=== PATIENT | female | born 1990 | race Caucasian/White ===

== ENCOUNTER 2018-04-14 21:19 | Emergency (ER) | payer BC, OTHER ==
[2018-04-14 21:26] VITALS: RESP 18
[2018-04-14 22:21] LABS: Appearance,Urine Clear (Clear); Bilirubin,Urine Negative (Negative); Blood,Urine Negative (Negative); Color,Urine Yellow; Glucose,Urine (UA) Negative (Negative); Ketones,Urine 3+ (Negative); Leukocyte Esterase,Urine Negative (Negative); Nitrite,Urine Negative (Negative); Protein,Urine Trace (Negative); Specific Gravity,Urine 1.024 (1.001-1.035)
[2018-04-14] MEDS ORDERED: ACETAMINOPHEN TAB 500 MG TAB PO STA (22:45)
[2018-04-14 23:23] LABS: Basophils % (A) 0 %; Eosinophils # (A) 0.1 k/uL (0-0.7); Eosinophils % (A) 1 %; HGB 13.7 gm/dL (11.4-16.0); Lymphocytes # (A) 1.7 k/uL (1.0-4.8); Lymphocytes % (A) 18 %; MCH 29.1 pg (25.0-35.0); MCHC 31.9 g/dL (31.0-37.0); MCV 91.1 fL (80.0-100.0); Mean Platelet Volume 6.5; Monocytes # (A) 0.6 k/uL (0-1.0); Monocytes % (A) 6 %; Neutrophils # (A) 6.6 k/uL (1.3-7.7); Neutrophils % (A) 71 %; Platelet Count 281 k/uL (150-450); RBC 4.73 m/uL (3.80-5.40); RDW 13.9 % (11.5-15.5); WBC 9.3 k/uL (3.8-10.6)
[2018-04-14 23:33] LABS: ALT 38 U/L (9-52); AST 28 U/L (14-36); Albumin 3.9 g/dL (3.5-5.0); Alkaline Phosphatase 59 U/L (38-126); Amylase 100 U/L (30-110); Anion Gap 11 mmol/L; Blood Urea Nitrogen 8 mg/dL (7-17); Calcium 8.9 mg/dL (8.4-10.2); Carbon Dioxide 21 mmol/L (22-30); Chloride 105 mmol/L (98-107); Glucose 78 mg/dL (74-99); Lipase 68 U/L (23-300); Potassium 3.8 mmol/L (3.5-5.1); Sodium 137 mmol/L (137-145); Total Bilirubin 0.4 mg/dL (0.2-1.3)
--- NOTE | 2018-04-15 00:07 | US ---
EXAMINATION TYPE: US OB >= 14 wk fetus DATE OF EXAM: 04/14/2018 COMPARISON: None CLINICAL HISTORY: PainPelvic discomfort, no bleeding TECHNIQUE: Transabdominal (TA) GESTATIONAL AGE / DATING Physician Established: (17 weeks/3 days) EDC: 09/19/2018 Dates by Current Scan: (17 weeks/5 days) EDC: 09/17/2018 Beta HCG (if available): Not available at this time SURVEY IUP: Single PLACENTA: Posterior PREVIA: No Previa ALYX: 13.6 cm Normal CERVICAL LENGTH (transabdominal: norm > 3.0cm): 3.3 cm BIOMETRY PRESENTATION: Vertex LIE: Longitudinal BPD: 4.0 cm 18 weeks / 2 days HC: 14.6 cm 17 weeks / 6 days AC: 12.0 cm 17 weeks / 5 days FL: 2.4 cm 17 weeks / 1 days ESTIMATED WEIGHT IN GRAMS: 198.0 grams ESTIMATED WEIGHT IN LBS/OZ: 0 lbs. 7 oz. WEIGHT PERCENTAGE BASED ON ESTABLISHED DATES: 49.7% HC/AC: 1.2 Normal FL/AC: 19.8 HEART RATE: 158 bpm RHYTHM: Normal Single live IUP measuring 17 weeks 5 days IMPRESSION: No complicating process seen. Cephalic presentation.
[2018-04-15 00:31] VITALS: BP 108/60; PULSE 54; TEMP 99
[2018-04-15 00:33] LABS: HCG,Quantitative Serum 37971.6 mIU/mL
--- NOTE | 2018-04-15 01:13 | ED ---
General Adult HPI - General Source: patient, RN notes reviewed Mode of arrival: wheelchair Limitations: no limitations <Elijah Alejo P - Last Filed: 04/15/18 01:18> <Candace Culver P - Last Filed: 04/16/18 05:04> - General Chief complaint: Abdominal Pain Stated complaint: abdominal pain/headache Time Seen by Provider: 04/14/18 22:20 - History of Present Illness Initial comments: 27 year old female presents to the emergency department for a chief complaint of vomiting and abdominal pain x one day. Patient is about 17 weeks . Patient states she has some left lower quadrant pain. She states she has been having normal bowel movements. Patient denies any pain with urination. Patient denies noticing any blood in the urine or stool. Patient states she has also vomited a few times today that has been able to keep some food down. Patient states she has a history of placenta previa with this and does not want a pelvic exam or a transvaginal ultrasound as read by her doctor.Patient has no other complaints at this time including fevers or chills, shortness of breath, chest pain, headache, or visual changes. (Elijah Alejo) - Related Data Home Medications Medication Instructions Recorded Confirmed No Known Home Medications 04/14/18 04/14/18 Allergies Allergy/AdvReac Type Severity Reaction Status Date / Time venom-honey bee Allergy Swelling Verified 04/14/18 22:48 [bee venom (honey bee)] artificial grape flavor Allergy Swelling Uncoded 04/14/18 21:26 Review of Systems ROS Other: All systems not noted in ROS Statement are negative. <Elijah Alejo - Last Filed: 04/15/18 01:18> ROS Other: All systems not noted in ROS Statement are negative. <Candace Culver P - Last Filed: 04/16/18 05:04> ROS Statement: Those systems with pertinent positive or pertinent negative responses have been documented in the HPI. Past Medical History Past Medical History: Asthma History of Any Multi-Drug Resistant Organisms: None Reported Past Surgical History: No Surgical Hx Reported Past Psychological History: Anxiety, Bipolar, Depression Smoking Status: Current every day smoker Past Alcohol Use History: Occasional Past Drug Use History: None Reported <Elijah Alejo - Last Filed: 04/15/18 01:18> General Exam Limitations: no limitations General appearance: alert, in no apparent distress Head exam: Present: atraumatic, normocephalic, normal inspection Eye exam: Present: normal appearance. Absent: scleral icterus, conjunctival injection ENT exam: Present: normal exam, mucous membranes moist Neck exam: Present: normal inspection, full ROM. Absent: tenderness, meningismus, lymphadenopathy Respiratory exam: Present: normal lung sounds bilaterally. Absent: respiratory distress, wheezes, rales, rhonchi, stridor Cardiovascular Exam: Present: regular rate, normal rhythm, normal heart sounds. Absent: systolic murmur, diastolic murmur, rubs, gallop, clicks GI/Abdominal exam: Present: soft, tenderness (mild LLQ tenderness, no tenderness elsewhere in the lower abdomen. ), normal bowel sounds. Absent: distended, guarding, rebound, rigid Back exam: Absent: CVA tenderness (R), CVA tenderness (L) Neurological exam: Present: alert, oriented X3, CN II-XII intact Psychiatric exam: Present: normal affect (Patient pleasant and cooperative. Does not appear in distress. Sitting in bed, non-toxic.), normal mood <Elijah Alejo P - Last Filed: 04/15/18 01:18> Vital Signs 04/14/18 04/15/18 21:24 00:30 Temperature 98.4 F 99.0 F Pulse Rate 115 H 54 L Respiratory 18 18 Rate Blood Pressure 117/75 108/60 O2 Sat by Pulse 100 100 Oximetry Medical Decision Making - Lab Data Result diagrams: 04/14/18 23:13 04/14/18 23:13 <Elijah Alejo P - Last Filed: 04/15/18 01:18> - Lab Data Result diagrams: 04/14/18 23:13 04/14/18 23:13 <Candace Culver P - Last Filed: 04/16/18 05:04> - Medical Decision Making 27 her old female presents to the emergency determine for chief complaint of left lower quadrant pain as well as vomiting times one day. Patient has been having normal bowel movements. Patient was initially tachycardic in the emergency department after pain was controlled with Tylenol vitals stabilized. On exam patient has left lower quadrant tenderness. No tenderness elsewhere in the abdomen. Patient is [id number]. CBC and CMP unremarkable. Amylase and lipase within normal limits. HCG Quant correlates to a second trimester . Urine shows no evidence of infection. Pedal ultrasound transabdominal shows no placenta previa. There is a single live IUP without, dictating process measuring 17 weeks and 5 days. Patient states she is feeling much better after the Tylenol and wants to go home. Patient is likely experiencing of round ligament pain. Patient will follow up with [facility] in the next 1-2 days. Discussed with patient returning to the emergency Department if she has any worsening symptoms which she agrees to do. (Elijah Alejo) I was available for consultation in the emergency department. The history and physical exam were done by the midlevel provider. I was consulted for this patient's care. I reviewed the case with the midlevel provider and based on their presentation of the patient, I agree with the assessment, medical decision making and plan of care as documented. (Candace Culver) - Lab Data Lab Results 04/14/18 04/14/18 04/14/18 Range/Units 22:07 22:07 23:13 WBC 9.3 (3.8-10.6) k/uL RBC 4.73 (3.80-5.40) m/uL Hgb 13.7 (11.4-16.0) gm/dL Hct 43.0 (34.0-46.0) % MCV 91.1 (80.0-100.0) fL MCH 29.1 (25.0-35.0) pg MCHC 31.9 (31.0-37.0) g/dL RDW 13.9 (11.5-15.5) % Plt Count 281 (150-450) k/uL Neutrophils % 71 % Lymphocytes % 18 % Monocytes % 6 % Eosinophils % 1 % Basophils % 0 % Neutrophils # 6.6 (1.3-7.7) k/uL Lymphocytes # 1.7 (1.0-4.8) k/uL Monocytes # 0.6 (0-1.0) k/uL Eosinophils # 0.1 (0-0.7) k/uL Basophils # 0.0 (0-0.2) k/uL Sodium (137-145) mmol/L Potassium (3.5-5.1) mmol/L Chloride (98-107) mmol/L Carbon Dioxide (22-30) mmol/L Anion Gap mmol/L BUN (7-17) mg/dL Creatinine (0.52-1.04) mg/dL Est GFR (CKD-EPI)AfAm (>60 ml/min/1.73 sqM) Est GFR (CKD-EPI)NonAf (>60 ml/min/1.73 sqM) Glucose (74-99) mg/dL Calcium (8.4-10.2) mg/dL Total Bilirubin (0.2-1.3) mg/dL AST (14-36) U/L ALT (9-52) U/L Alkaline Phosphatase (38-126) U/L Total Protein (6.3-8.2) g/dL Albumin (3.5-5.0) g/dL Amylase (30-110) U/L Lipase (23-300) U/L HCG, Quant mIU/mL Urine Color Yellow Urine Appearance Clear (Clear) Urine pH 6.0 (5.0-8.0) Ur Specific [place] 1.024 (1.001-1.035) Urine Protein Trace H (Negative) Urine Glucose (UA) Negative (Negative) Urine Ketones 3+ H (Negative) Urine Blood Negative (Negative) Urine Nitrite Negative (Negative) Urine Bilirubin Negative (Negative) Urine Urobilinogen 2.0 (<2.0) mg/dL Ur Leukocyte Esterase Negative (Negative) Urine HCG, Qual Detected (Not Detectd) 04/14/18 Range/Units 23:13 WBC (3.8-10.6) k/uL RBC (3.80-5.40) m/uL Hgb (11.4-16.0) gm/dL Hct (34.0-46.0) % MCV (80.0-100.0) fL MCH (25.0-35.0) pg MCHC (31.0-37.0) g/dL RDW (11.5-15.5) % Plt Count (150-450) k/uL Neutrophils % % Lymphocytes % % Monocytes % % Eosinophils % % Basophils % % Neutrophils # (1.3-7.7) k/uL Lymphocytes # (1.0-4.8) k/uL Monocytes # (0-1.0) k/uL Eosinophils # (0-0.7) k/uL Basophils # (0-0.2) k/uL Sodium 137 (137-145) mmol/L Potassium 3.8 (3.5-5.1) mmol/L Chloride 105 (98-107) mmol/L Carbon Dioxide 21 L (22-30) mmol/L Anion Gap 11 mmol/L BUN 8 (7-17) mg/dL Creatinine 0.60 (0.52-1.04) mg/dL Est GFR (CKD-EPI)AfAm >90 (>60 ml/min/1.73 sqM) Est GFR (CKD-EPI)NonAf >90 (>60 ml/min/1.73 sqM) Glucose 78 (74-99) mg/dL Calcium 8.9 (8.4-10.2) mg/dL Total Bilirubin 0.4 (0.2-1.3) mg/dL AST 28 (14-36) U/L ALT 38 (9-52) U/L Alkaline Phosphatase 59 (38-126) U/L Total Protein 7.0 (6.3-8.2) g/dL Albumin 3.9 (3.5-5.0) g/dL Amylase 100 (30-110) U/L Lipase 68 (23-300) U/L HCG, Quant 38050.6 mIU/mL Urine Color Urine Appearance (Clear) Urine pH (5.0-8.0) Ur Specific [place] (1.001-1.035) Urine Protein (Negative) Urine Glucose (UA) (Negative) Urine Ketones (Negative) Urine Blood (Negative) Urine Nitrite (Negative) Urine Bilirubin (Negative) Urine Urobilinogen (<2.0) mg/dL Ur Leukocyte Esterase (Negative) Urine HCG, Qual (Not Detectd) Disposition Is patient prescribed a controlled substance at d/c from ED?: No Time of Disposition: 01:11 <Elijah Alejo P - Last Filed: 04/15/18 01:18> <Candace Culver P - Last Filed: 04/16/18 05:04> Clinical Impression: Abdominal pain, Round ligament pain Disposition: HOME SELF-CARE Condition: Good Instructions: Abdominal Pain in (ED) Additional Instructions: Please follow-up with [facility] in one to 2 days. Return to the emergency department if you have any worsening symptoms. Referrals: Neelam Brown MD [Primary Care Provider] - 1-2 days
== END 2018-04-15 01:22 | disposition home or self-care (01) ==
LOC: EC 21:19
DX: O99.89 Other specified diseases and conditions complicating pregnancy, childbirth and the puerperium (principal); R10.2 Pelvic and perineal pain; O21.9 Vomiting of pregnancy, unspecified; O99.332 Smoking (tobacco) complicating pregnancy, second trimester; F17.200 Nicotine dependence, unspecified, uncomplicated; Z3A.17 17 weeks gestation of pregnancy; Z91.030 Bee allergy status; Z91.018 Allergy to other foods
CPT/HCPCS: 36415; 76805; 80053; 81003; 81025; 82150; 83690; 84702; 85025; 99284

== ENCOUNTER 2019-08-06 12:55 | Emergency (ER) | payer BC ==
[2019-08-06 13:05] VITALS: BP 133/94; PULSE 125; RESP 18; TEMP 98.3
[2019-08-06] MEDS ORDERED: ACET/COD 300 MG/30 MG STARTER PACK 6 TAB BTL PO STA (13:29)
--- NOTE | 2019-08-06 13:30 | ED ---
ENT HPI - General Chief complaint: Dental/Oral Stated complaint: dental abscess Time Seen by Provider: 08/06/19 13:08 Source: patient Mode of arrival: ambulatory Limitations: no limitations - History of Present Illness Initial comments: patient is a 28-year-old female presenting to emergency Department with complaints of left-sided dental pain that started 2 weeks ago. She has history of multiple dental fractures and caries and states she has been dealing with left lower tooth pain for a few weeks now. Patient states she noticed the swelling started yesterday and has been increasing throughout today. Patient denies fever or chills, nausea or vomiting. Patient states she has not called her dentist yet. Patient has been taking Tylenol and Motrin for pain relief without significant improvement. Patient has no other complaints at this time. Upon arrival toT ER, her vital signs are stable. - Related Data Previous Rx's Medication Instructions Recorded Ibuprofen [Motrin] 600 mg PO Q8HR PRN #30 tab 08/06/19 Penicillin V Potassium [Pen Vee K] 500 mg PO QID 10 Days #40 tablet 08/06/19 Allergies Allergy/AdvReac Type Severity Reaction Status Date / Time venom-honey bee Allergy Swelling Verified 08/06/19 13:03 [bee venom (honey bee)] artificial grape flavor Allergy Swelling Uncoded 08/06/19 13:03 Review of Systems ROS Statement: Those systems with pertinent positive or pertinent negative responses have been documented in the HPI. ROS Other: All systems not noted in ROS Statement are negative. Past Medical History Past Medical History: Asthma History of Any Multi-Drug Resistant Organisms: None Reported Past Surgical History: No Surgical Hx Reported Past Psychological History: Anxiety, Bipolar, Depression Smoking Status: Current every day smoker Past Alcohol Use History: Occasional Past Drug Use History: None Reported General Exam - General Exam Comments Initial Comments: GENERAL: Well-appearing, well-nourished and in no acute distress. HEAD: Atraumatic, normocephalic. EYES: Pupils equal round and reactive to light, extraocular movements intact, sclera anicteric, conjunctiva are normal. ENT: TMs normal, nares patent, oropharynx clear without exudates. Moist mucous membranes. Patient has multiple dental caries and fractures. Patient has a fracture of the left lower teeth, #17 and #18. No abscess is seen. Patient has mild to moderate swelling of the left lower jawline. No overlying erythema. NECK: Normal range of motion, supple without lymphadenopathy or JVD. LUNGS: Breath sounds clear to auscultation bilaterally and equal. No wheezes rales or rhonchi. HEART: Regular rate and rhythm without murmurs, rubs or gallops. NEUROLOGICAL: Normal speech, normal gait. PSYCH: Normal mood, normal affect. SKIN: Warm, Dry, normal turgor, no rashes or lesions noted. Limitations: no limitations Course Vital Signs 08/06/19 13:03 Temperature 98.3 F Pulse Rate 125 H Respiratory 18 Rate Blood Pressure 133/94 O2 Sat by Pulse 98 Oximetry Medical Decision Making - Medical Decision Making patient is a 28-year-old female with a left lower dental abscess secondary to multiple caries and fractures. Vital signs are stable afebrile. Patient will be started on penicillin and pain management and will follow-up with dentist VINCENT. Patient is agreement with this plan of care. She is stable for discharge at this time. Return parameters were discussed with the patient she verbalized understanding. Case discussed with Dr. Borges. Disposition Clinical Impression: Dental abscess, Dental caries, Fracture of tooth Disposition: HOME SELF-CARE Condition: Stable Instructions (If sedation given, give patient instructions): Dental Abscess (ED) Additional Instructions: Please return to the Emergency Department if symptoms worsen or any other concerns. Take antibiotic as prescribed. Follow-up with dentist VINCENT. Prescriptions: Ibuprofen [Motrin] 600 mg PO Q8HR PRN #30 tab PRN Reason: Pain Penicillin V Potassium [Pen Vee K] 500 mg PO QID 10 Days #40 tablet Is patient prescribed a controlled substance at d/c from ED?: No Referrals: None,Stated [Primary Care Provider] - 1-2 days
== END 2019-08-06 13:42 | disposition home or self-care (01) ==
LOC: EC 12:55
DX: K04.7 Periapical abscess without sinus (principal); K02.9 Dental caries, unspecified; S02.5XXA Fracture of tooth (traumatic), initial encounter for closed fracture; F17.200 Nicotine dependence, unspecified, uncomplicated; Z91.030 Bee allergy status; Z91.018 Allergy to other foods; X58.XXXA Exposure to other specified factors, initial encounter
CPT/HCPCS: 99282

== ENCOUNTER 2020-07-27 16:51 | Emergency (ER) | payer BC ==
[2020-07-27 17:00] VITALS: TEMP 98.4
[2020-07-27] MEDS ORDERED: ACETAMINOPHEN TAB 500 MG TAB PO STA ×2 (17:44→19:53)
[2020-07-27] MEDS ORDERED: AMOXICILLIN 500MG STARTER PACK 3 CAP BTL PO STA (17:44)
[2020-07-27 18:00] LABS: Appearance,Urine Clear (Clear); Bilirubin,Urine Negative (Negative); Blood,Urine Negative (Negative); Color,Urine Yellow; Glucose,Urine (UA) Negative (Negative); Ketones,Urine Negative (Negative); Leukocyte Esterase,Urine Negative (Negative); Nitrite,Urine Negative (Negative); PH, Urine 6.5 (5.0-8.0); Protein,Urine Negative (Negative); Specific Gravity,Urine 1.021 (1.001-1.035); Urobilinogen,Urine <2.0 mg/dL (<2.0)
--- NOTE | 2020-07-27 18:00 | ED ---
ENT HPI - General Chief complaint: Dental/Oral Stated complaint: tooth abcess Time Seen by Provider: 07/27/20 17:20 Source: patient, RN notes reviewed, old records reviewed Mode of arrival: ambulatory Limitations: no limitations - History of Present Illness Initial comments: 29-year-old female presents emergency department today with complaints of left lower dental pain and abscess and drainage within her mouth. Patient was also notably . She stated to the triage nurse that she has had no care does not know how far along she is. Patient reports that she is a female with a 5-year-old and 2-year-old. She reports that she is currently staying with her uncle and has unstable living situation. Patient reports that she has no current intent to follow-up with [facility]. - Related Data Previous Rx's Medication Instructions Recorded Ibuprofen [Motrin] 600 mg PO Q8HR PRN #30 tab 08/06/19 Penicillin V Potassium [Pen Vee K] 500 mg PO QID 10 Days #40 tablet 08/06/19 Acetaminophen Tab [Tylenol Tab] 500 mg PO Q4H #30 tablet 07/27/20 Amoxicillin 500 mg PO TID #30 capsule 07/27/20 Vit,Calc78/Iron/Folic 1 each PO DAILY #30 tablet 07/27/20 [Pretab 29 mg-1 mg Tablet] Allergies Allergy/AdvReac Type Severity Reaction Status Date / Time venom-honey bee Allergy Swelling Verified 07/27/20 16:53 [bee venom (honey bee)] artificial grape flavor Allergy Swelling Uncoded 08/06/19 13:03 Review of Systems ROS Statement: Those systems with pertinent positive or pertinent negative responses have been documented in the HPI. ROS Other: All systems not noted in ROS Statement are negative. Past Medical History Past Medical History: Asthma History of Any Multi-Drug Resistant Organisms: None Reported Past Surgical History: No Surgical Hx Reported Past Psychological History: Anxiety, Bipolar, Depression Smoking Status: Current every day smoker Past Alcohol Use History: Occasional Past Drug Use History: None Reported General Exam - General Exam Comments Initial Comments: 21-year-old female. Alert. Patient appears in mild discomfort due to dental pain. Limitations: no limitations General appearance: alert, in no apparent distress Head exam: Present: atraumatic, normocephalic, normal inspection Eye exam: Present: normal appearance, PERRL, EOMI. Absent: scleral icterus, conjunctival injection, periorbital swelling ENT exam: Present: normal exam, mucous membranes moist. Absent: other (poor dentition, dental abscess on R lower molar area. ) Neck exam: Present: normal inspection. Absent: tenderness, meningismus, lymphadenopathy Respiratory exam: Present: normal lung sounds bilaterally. Absent: respiratory distress, wheezes, rales, rhonchi, stridor Cardiovascular Exam: Present: regular rate, normal rhythm, normal heart sounds. Absent: systolic murmur, diastolic murmur, rubs, gallop, clicks GI/Abdominal exam: Present: soft, normal bowel sounds, other (protruberant abdomen consistent with pregancy). Absent: distended, tenderness, guarding, rebound, rigid Extremities exam: Present: normal inspection, full ROM, normal capillary refill. Absent: tenderness, pedal edema, joint swelling, calf tenderness Back exam: Present: normal inspection Neurological exam: Present: alert, oriented X3, CN II-XII intact Psychiatric exam: Present: normal affect, normal mood Skin exam: Present: warm, dry, intact, normal color. Absent: rash Course Vital Signs 07/27/20 07/27/20 16:53 20:03 Temperature 98.4 F Pulse Rate 116 H 96 Respiratory 18 16 Rate Blood Pressure 133/87 113/70 O2 Sat by Pulse 100 99 Oximetry Medical Decision Making - Medical Decision Making 29 year old gravid female presents with dental pain. She has no care. US today shows IUP measuring 31.5 weeks. She had basic lab work for ca re. She denies abdominal pain or bleeding. PT informed of low HR on US and prefers to go home without NST testing. PT will be started on amoxicillin for dental abscess. Advised OBGYN follow up. - Lab Data Result diagrams: 07/27/20 18:30 07/27/20 18:30 Lab Results 07/27/20 07/27/20 07/27/20 Range/Units 17:53 17:53 18:30 WBC 11.5 H (3.8-10.6) k/uL RBC 4.17 (3.80-5.40) m/uL Hgb 10.8 L (11.4-16.0) gm/dL Hct 34.7 (34.0-46.0) % MCV 83.1 (80.0-100.0) fL MCH 25.9 (25.0-35.0) pg MCHC 31.2 (31.0-37.0) g/dL RDW 13.5 (11.5-15.5) % Plt Count 539 H (150-450) k/uL MPV 8.1 Neutrophils % 65 % Lymphocytes % 27 % Monocytes % 4 % Eosinophils % 1 % Basophils % 1 % Neutrophils # 7.5 (1.3-7.7) k/uL Lymphocytes # 3.1 (1.0-4.8) k/uL Monocytes # 0.5 (0-1.0) k/uL Eosinophils # 0.1 (0-0.7) k/uL Basophils # 0.1 (0-0.2) k/uL Hypochromasia Moderate Poikilocytosis Slight Glucose (74-99) mg/dL Urine Color Yellow Urine Appearance Clear (Clear) Urine pH 6.5 (5.0-8.0) Ur Specific [place] 1.021 (1.001-1.035) Urine Protein Negative (Negative) Urine Glucose (UA) Negative (Negative) Urine Ketones Negative (Negative) Urine Blood Negative (Negative) Urine Nitrite Negative (Negative) Urine Bilirubin Negative (Negative) Urine Urobilinogen <2.0 (<2.0) mg/dL Ur Leukocyte Esterase Negative (Negative) Urine Opiates Screen Not Detected (NotDetected) Ur Oxycodone Screen Not Detected (NotDetected) Urine Methadone Screen Not Detected (NotDetected) Ur Propoxyphene Screen Not Detected (NotDetected) Ur Barbiturates Screen Not Detected (NotDetected) U Tricyclic Antidepress Not Detected (NotDetected) Ur Phencyclidine Scrn Not Detected (NotDetected) Ur Amphetamines Screen Not Detected (NotDetected) U Methamphetamines Scrn Not Detected (NotDetected) U Benzodiazepines Scrn Not Detected (NotDetected) Urine Cocaine Screen Not Detected (NotDetected) U Marijuana (THC) Screen Detected H (NotDetected) Hep Bs Antigen (Non-Reactive) Blood Type Blood Type Confirm Blood Type Recheck Bld Type Recheck Status Antibody Screen Spec Expiration Date 07/27/20 07/27/20 07/27/20 Range/Units 18:30 18:30 18:30 WBC (3.8-10.6) k/uL RBC (3.80-5.40) m/uL Hgb (11.4-16.0) gm/dL Hct (34.0-46.0) % MCV (80.0-100.0) fL MCH (25.0-35.0) pg MCHC (31.0-37.0) g/dL RDW (11.5-15.5) % Plt Count (150-450) k/uL MPV Neutrophils % % Lymphocytes % % Monocytes % % Eosinophils % % Basophils % % Neutrophils # (1.3-7.7) k/uL Lymphocytes # (1.0-4.8) k/uL Monocytes # (0-1.0) k/uL Eosinophils # (0-0.7) k/uL Basophils # (0-0.2) k/uL Hypochromasia Poikilocytosis Glucose 78 (74-99) mg/dL Urine Color Urine Appearance (Clear) Urine pH (5.0-8.0) Ur Specific [place] (1.001-1.035) Urine Protein (Negative) Urine Glucose (UA) (Negative) Urine Ketones (Negative) Urine Blood (Negative) Urine Nitrite (Negative) Urine Bilirubin (Negative) Urine Urobilinogen (<2.0) mg/dL Ur Leukocyte Esterase (Negative) Urine Opiates Screen (NotDetected) Ur Oxycodone Screen (NotDetected) Urine Methadone Screen (NotDetected) Ur Propoxyphene Screen (NotDetected) Ur Barbiturates Screen (NotDetected) U Tricyclic Antidepress (NotDetected) Ur Phencyclidine Scrn (NotDetected) Ur Amphetamines Screen (NotDetected) U Methamphetamines Scrn (NotDetected) U Benzodiazepines Scrn (NotDetected) Urine Cocaine Screen (NotDetected) U Marijuana (THC) Screen (NotDetected) Hep Bs Antigen Non-Reactive (Non-Reactive) Blood Type A Negative Blood Type Confirm Blood Type Recheck No Previous Record Bld Type Recheck Status CABO Indicated Antibody Screen NEGATIVE Spec Expiration Date 07/30/2020 - 232907/27/20 Range/Units 18:30 WBC (3.8-10.6) k/uL RBC (3.80-5.40) m/uL Hgb (11.4-16.0) gm/dL Hct (34.0-46.0) % MCV (80.0-100.0) fL MCH (25.0-35.0) pg MCHC (31.0-37.0) g/dL RDW (11.5-15.5) % Plt Count (150-450) k/uL MPV Neutrophils % % Lymphocytes % % Monocytes % % Eosinophils % % Basophils % % Neutrophils # (1.3-7.7) k/uL Lymphocytes # (1.0-4.8) k/uL Monocytes # (0-1.0) k/uL Eosinophils # (0-0.7) k/uL Basophils # (0-0.2) k/uL Hypochromasia Poikilocytosis Glucose (74-99) mg/dL Urine Color Urine Appearance (Clear) Urine pH (5.0-8.0) Ur Specific [place] (1.001-1.035) Urine Protein (Negative) Urine Glucose (UA) (Negative) Urine Ketones (Negative) Urine Blood (Negative) Urine Nitrite (Negative) Urine Bilirubin (Negative) Urine Urobilinogen (<2.0) mg/dL Ur Leukocyte Esterase (Negative) Urine Opiates Screen (NotDetected) Ur Oxycodone Screen (NotDetected) Urine Methadone Screen (NotDetected) Ur Propoxyphene Screen (NotDetected) Ur Barbiturates Screen (NotDetected) U Tricyclic Antidepress (NotDetected) Ur Phencyclidine Scrn (NotDetected) Ur Amphetamines Screen (NotDetected) U Methamphetamines Scrn (NotDetected) U Benzodiazepines Scrn (NotDetected) Urine Cocaine Screen (NotDetected) U Marijuana (THC) Screen (NotDetected) Hep Bs Antigen (Non-Reactive) Blood Type Blood Type Confirm A Negative Blood Type Recheck Bld Type Recheck Status Antibody Screen Spec Expiration Date - Radiology Data Radiology results: report reviewed US shows IUP measuring 31.5 weeks with HR 118. Disposition Clinical Impression: 31 weeks gestation of , Chronic dental pain Disposition: HOME SELF-CARE Condition: Good Instructions (If sedation given, give patient instructions): Toothache (ED) Additional Instructions: Please use medication as discussed. Please follow up with family doctor if symptoms have not improved over the next two days. Please return to the emergency room if your symptoms increase or worsen or for any other concerns. Prescriptions: Amoxicillin 500 mg PO TID #30 capsule Vit,Calc78/Iron/Folic [Pretab 29 mg-1 mg Tablet] 1 each PO DAILY #30 tablet Acetaminophen Tab [Tylenol Tab] 500 mg PO Q4H #30 tablet Is patient prescribed a controlled substance at d/c from ED?: No Referrals: Anthony Jansen MD [STAFF PHYSICIAN] - 1-2 days None,Stated [Primary Care Provider] - 1-2 days Time of Disposition: 19:37
[2020-07-27 18:17] LABS: Amphetamine Screen,Urine Not Detected (NotDetected); Barbiturate Screen,Urine Not Detected (NotDetected); Benzodiazepines Screen,Urine Not Detected (NotDetected); Cocaine Screen,Urine Not Detected (NotDetected); Methadone Screen, Urine Not Detected (NotDetected); Opiate Screen,Urine Not Detected (NotDetected); Oxycodone Screen, Urine Not Detected (NotDetected); Phencyclidine Screen,Urine Not Detected (NotDetected); Tricyclic Antidepressant,Urine Not Detected (NotDetected); Urn Cannabinoid Scrn Detected (NotDetected)
[2020-07-27 18:49] LABS: Basophils # (A) 0.1 k/uL (0-0.2); Basophils % (A) 1 %; Eosinophils # (A) 0.1 k/uL (0-0.7); Eosinophils % (A) 1 %; HCT 34.7 % (34.0-46.0); HGB 10.8 gm/dL (11.4-16.0); Hypochromasia Moderate; Lymphocytes # (A) 3.1 k/uL (1.0-4.8); Lymphocytes % (A) 27 %; MCH 25.9 pg (25.0-35.0); MCHC 31.2 g/dL (31.0-37.0); MCV 83.1 fL (80.0-100.0); Mean Platelet Volume 8.1; Monocytes # (A) 0.5 k/uL (0-1.0); Monocytes % (A) 4 %; Neutrophils # (A) 7.5 k/uL (1.3-7.7); Neutrophils % (A) 65 %; Platelet Count 539 k/uL (150-450); Poikilocytosis Slight; RBC 4.17 m/uL (3.80-5.40); RDW 13.5 % (11.5-15.5); WBC 11.5 k/uL (3.8-10.6)
--- NOTE | 2020-07-27 19:10 | US ---
EXAMINATION TYPE: US OB >= 14 wk fetus DATE OF EXAM: 07/27/2020 COMPARISON: None CLINICAL HISTORY: unaware of dates, no care, abdominal pain TECHNIQUE: Transabdominal (TA) GESTATIONAL AGE / DATING Physician Established: Not yet established Dates by LMP: LMP unknown Dates by First Scan: No previous this is first scan Dates by Current Scan: (31 weeks/0 days) EDC: 27-20 Beta HCG (if available): Not available at this time SURVEY IUP: Single PLACENTA: Anterior PREVIA: No Previa ALYX: 7.5 cm CERVICAL LENGTH (transabdominal: norm > 3.0cm): unable to visualize CERVICAL LENGTH (transvaginal: norm> 2.5cm): 3.5cm cm (Supplemental transvaginal imaging performed to verify cervical length.) BIOMETRY PRESENTATION: Vertex BPD: 7.9 cm 31 weeks / 5 days HC: 28.5 cm 31 weeks / 2 days AC: 27.1 cm 31 weeks / 1 days FL: 6.0 cm 31 weeks / 3 days ESTIMATED WEIGHT IN GRAMS: 1737 grams ESTIMATED WEIGHT IN LBS/OZ: 3 lbs. 13 oz. WEIGHT PERCENTAGE BASED ON ESTABLISHED DATES: No established due date HC/AC: 1.1 FL/AC: 22.3 HEART RATE: 118 bpm RHYTHM: Normal Heart rate slightly low. IMPRESSION: Amniotic fluid is adequate. No old exam available for evaluation of growth.
[2020-07-27 20:04] VITALS: BP 113/70; PULSE 96; RESP 16
[2020-07-27 23:20] LABS: Hepatitis B Surface Antigen Non-Reactive (Non-Reactive)
[2020-07-28 14:10] LABS: HIV 2 AB Non-Reactive (Non-Reactive); HIV AB P24 Non-Reactive (Non-Reactive); HIV P24 AG Non-Reactive (Non-Reactive)
[2020-07-29 13:21] LABS: C. trachomatis,PCR Negative (Neg,Equiv); Chlamydia trachomatis Source Urine; N. gonorrhoeae,PCR Negative (Neg,Equiv); Neisseria Source Urine
== END 2020-07-27 20:04 | disposition home or self-care (01) ==
LOC: EC 16:51
DX: O99.613 Diseases of the digestive system complicating pregnancy, third trimester (principal); K04.7 Periapical abscess without sinus; O99.333 Smoking (tobacco) complicating pregnancy, third trimester; F17.200 Nicotine dependence, unspecified, uncomplicated; Z91.030 Bee allergy status; Z91.02 Food additives allergy status; Z3A.31 31 weeks gestation of pregnancy
CPT/HCPCS: 36415; 76805; 76817; 80306; 81003; 82947; 85025; 86762; 86780; 86850; 86900; 86901; 87340; 87390; 87491; 87591; 99284

== ENCOUNTER 2020-09-02 19:50 | Observation (INO) | payer BC ==
[2020-09-02 20:28] LABS: Appearance,Urine Cloudy (Clear); Bacteria,Urine Rare /hpf; Bilirubin,Urine Negative (Negative); Blood,Urine Negative (Negative); Color,Urine Yellow; Glucose,Urine (UA) Negative (Negative); Ketones,Urine Negative (Negative); Leukocyte Esterase,Urine Trace (Negative); Mucus,Urine Rare /hpf; Nitrite,Urine Negative (Negative); Protein,Urine Trace (Negative); RBC,Urine 2 /hpf (0-5); Specific Gravity,Urine 1.019 (1.001-1.035); Sperm,Urine Rare /hpf; Squamous Epithelial Cell,Urine 20 /hpf (0-4); Urobilinogen,Urine <2.0 mg/dL (<2.0); WBC,Urine 6 /hpf (0-5)
[2020-09-02 20:47] LABS: Amphetamine Screen,Urine Not Detected (NotDetected); Barbiturate Screen,Urine Not Detected (NotDetected); Benzodiazepines Screen,Urine Not Detected (NotDetected); Cocaine Screen,Urine Not Detected (NotDetected); Methadone Screen, Urine Not Detected (NotDetected); Opiate Screen,Urine Not Detected (NotDetected); Oxycodone Screen, Urine Not Detected (NotDetected); Phencyclidine Screen,Urine Not Detected (NotDetected); Tricyclic Antidepressant,Urine Not Detected (NotDetected); Urn Cannabinoid Scrn Detected (NotDetected)
[2020-09-02 20:59] LABS: Basophils # (A) 0.2 k/uL (0-0.2); Basophils % (A) 1 %; Eosinophils # (A) 0.1 k/uL (0-0.7); Eosinophils % (A) 1 %; HCT 33.6 % (34.0-46.0); Hypochromasia Moderate; Lymphocytes # (A) 3.1 k/uL (1.0-4.8); Lymphocytes % (A) 21 %; MCH 25.2 pg (25.0-35.0); MCHC 32.6 g/dL (31.0-37.0); Mean Platelet Volume 8.2; Monocytes # (A) 0.8 k/uL (0-1.0); Monocytes % (A) 5 %; Neutrophils # (A) 10.7 k/uL (1.3-7.7); Neutrophils % (A) 72 %; Platelet Count 426 k/uL (150-450); Poikilocytosis Slight; RBC 4.35 m/uL (3.80-5.40); RDW 15.1 % (11.5-15.5)
[2020-09-02 21:11] LABS: MCV 77.1 fL (80.0-100.0)
--- NOTE | 2020-09-02 21:57 | US ---
EXAMINATION TYPE: US OB >= 14 wk fetus DATE OF EXAM: 09/02/2020 COMPARISON: US 07/27/2020. CLINICAL HISTORY: ALYX and EFWAFI and EFW per order. TECHNIQUE: Transabdominal (TA) GESTATIONAL AGE / DATING Physician Established: (36 weeks/2 days) EDC: 09/28/2020 Dates by LMP: Unknown. Dates by First Scan: (36 weeks/2 days) EDC: 09/28/2020 Dates by Current Scan: (35 weeks/2 days) EDC: 10/05/2020 SURVEY IUP: Single PLACENTA: Anterior. Hypoechoic area seen measuring 1.3 x 2.1 x 1.5 cm. PREVIA: No Previa ALYX: 8.89 cm. CERVICAL LENGTH (transabdominal: norm > 3.0cm): Not well seen. No transvaginal exam necessary per RN. BIOMETRY PRESENTATION: Vertex LIE: Longitudinal BPD: 8.70 cm 35 weeks / 1 day HC: 31.80 cm 35 weeks / 5 days AC: 31.88 cm 35 weeks / 6 days FL: 6.96 cm 35 weeks / 5 days ESTIMATED WEIGHT IN GRAMS: 2746 grams ESTIMATED WEIGHT IN LBS/OZ: 6 lbs. 1 oz. WEIGHT PERCENTAGE BASED ON ESTABLISHED DATES: 36.1% HC/AC: 1.00 Normal FL/AC: 21.83 Normal HEART RATE: 130 bpm RHYTHM: Normal Limited head measurements due to a lot of patient movement. IMPRESSION: Single live intrauterine gestation with estimated age of 35 weeks 2 days. The fetus age lags behind b y 1 week (estimated age of 36 weeks 2 days by first scan). ALYX measures 8.9 cm. Nonspecific small hypoechoic focus within the anterior placenta.
[2020-09-02] MEDS ORDERED: LACTATED RINGERS 1,000 ML IV SCH (22:00)
[2020-09-02 22:33] LABS: Creatinine,Urine Random 116.8 mg/dL; Protein/Creatinine Ratio,Urine 0.094
[2020-09-02 22:35] LABS: Creatinine,Urine Random 117.2 mg/dL
[2020-09-02 23:07] LABS: ALT 14 U/L (4-34); AST 38 U/L (14-36); African American GFR (CKD) >90 (>60 ml/min/1.73 sqM); Blood Urea Nitrogen 14 mg/dL (7-17); LDH 656 U/L (313-618); Non-African American GFR(CKD) >90 (>60 ml/min/1.73 sqM); Uric Acid 5.5 mg/dL (3.7-7.4)
--- NOTE | 2020-09-03 00:27 | P.HPOB ---
History of Present Illness H&P Date: 09/03/20 Chief Complaint: Is a 36 weeks: Elevated blood pressures Patient is a 29-year-old at 36 weeks' gestation based on a 31 week ultrasound. She has had no care with this and has delivered her other 2 babies at 2 other facilities. It is unclear why she did not seek other care during this . Initially she arrived complaining of contractions and pain but she was dilated once admitted 50% effaced and -3 station. Due to her not having any care and her concern that she may be leaking fluid an ultrasound was ordered with an ALYX of greater than 8 and an EFW of approximately 6 pounds vertex presentation. Following the ultrasound she began having significant contractions every 2-3 minutes and she related they were severe late painful and she began having both blood pressures that again to go well. She had a blood pressure 160/90 preeclamptic labs were ordered at that time. Following a little bit of rest and initiation of IV hydration for the contractions her blood pressures did decrease to the 120s over 70s range. However, recently her blood pressures again began to creep up 150s over 80s in 140s over an 80s to 90s. All this is not been 4 hours in duration I suspect that she probably has either gestational hypertension hypertension but cannot completely rule out preeclampsia. 3 clamps labs did reveal igor platelets and a normal protein creatinine ratio. It is however noted that she has mild elevation of her AST which is likely noninfectious portal, however her LDH is also noted to be greater than 650 making the diagnosis of preeclampsia still possible. As she has this elevation and we have no real knowledge of what her blood pressures have been I am advising admission to the hospital for 24-hour urine for protein and serial blood pressures. I did give a thorough explanation of preeclampsia and my concerns and risks including but not limited to bleeding, seizure, stroke, placental abruption, or maternal . She is currently deciding if she would like to take our advice and be admitted to the hospital or if she is going to sign out AGAINST MEDICAL ADVICE. I did spend approximately 30 minutes with her discussing all of the above and explained things in great detail. On physical exam her heart is otherwise regular and her lungs are clear. Abdomen is soft and irregular contractions every 4-6 minutes are noted on the monitor but she relates she is not feeling them. There is a category 1 tracing noted this time. No cervical change had been previously noted. Extremities are without pain and there is no peripheral edema and deep tendon reflexes are + 1-2 l Assessment intrauterine Brixey 36 weeks with gestational hypertension versus preeclampsia Plan 24-hour urine and serial blood pressures to give a further assessment of her preeclamptic risk with likely repeat of her LDH and other preeclamptic labs as needed. In our discussion is also noted that she did not have her Bertrand gamma but at 36 weeks it is unlikely to be significant beneficial her Rh antibody is negative and the plan would be to likely deliver her in the next 7 days due to the preeclampsia/gestational hypertension. Other labs are thus far unremarkable with RPR and HIV and hepatitis B surface antigen all being negative and her rubella is immune. Past Medical History Past Medical History: Asthma History of Any Multi-Drug Resistant Organisms: None Reported Past Surgical History: No Surgical Hx Reported Smoking Status: Current every day smoker Medications and Allergies Allergies Allergy/AdvReac Type Severity Reaction Status Date / Time venom-honey bee Allergy Swelling Verified 09/02/20 19:51 [bee venom (honey bee)] artificial grape flavor Allergy Swelling Uncoded 09/02/20 19:51 Exam Osteopathic Statement: *. No significant issues noted on an osteopathic structural exam other than those noted in the History and Physical/Consult. Intake and Output 09/02/20 09/02/20 09/03/20 14:59 22:59 06:59 Other: Weight 55.338 kg Results Result Diagrams: 09/02/20 20:26 09/02/20 22:07 Abnormal Lab Results - Last 24 Hours (Table) 09/02/20 09/02/20 09/02/20 Range/Units 20:17 20:26 22:07 WBC 15.0 H (3.8-10.6) k/uL Hgb 11.0 L (11.4-16.0) gm/dL Hct 33.6 L (34.0-46.0) % MCV 77.1 L D (80.0-100.0) fL Neutrophils # 10.7 H (1.3-7.7) k/uL AST 38 H (14-36) U/L Lactate Dehydrogenase 656 H (313-618) U/L Urine Appearance Cloudy H (Clear) Urine Protein Trace H (Negative) Ur Leukocyte Esterase Trace H (Negative) Urine WBC 6 H (0-5) /hpf Ur Squamous Epith Cells 20 H (0-4) /hpf Urine Bacteria Rare H (None) /hpf Urine Mucus Rare H (None) /hpf U Marijuana (THC) Screen Detected H (NotDetected)
[2020-09-03 05:31] LABS: HIV 2 AB Non-Reactive (Non-Reactive); HIV AB P24 Non-Reactive (Non-Reactive); HIV P24 AG Non-Reactive (Non-Reactive)
[2020-09-03 10:03] LABS: Hepatitis B Surface Antigen Non-Reactive (Non-Reactive)
[2020-09-03 12:09] VITALS: RESP 16
[2020-09-04 00:45] LABS: Total Protein 24 Hour,Urine 210 mg/24hr (42.0-225.0); Total Volume 24 Hour,Urine 2100 mls (800-1800)
[2020-09-04 00:48] VITALS: BP 109/60; PULSE 78; TEMP 98.4
[2020-09-04 13:38] LABS: C. trachomatis,PCR Negative (Neg,Equiv); Chlamydia trachomatis Source Urine; N. gonorrhoeae,PCR Negative (Neg,Equiv); Neisseria Source Urine
--- NOTE | 2020-09-09 12:43 | P.DS ---
Providers Date of admission: 09/02/20 23:00 Expected date of discharge: 09/04/20 Attending physician: Delfino Trevino Primary care physician: Stated None Hospital Course: Please see history and physical regarding details of patient's admission. Patient was undergoing a 24-hour urine due to some elevated blood pressures. Her blood pressures had normalized and her 24 hour urine was normal. The patient did not want to wait until morning to see Dr. Trevino prior to discharge. She wanted to be discharged at 1 in the morning due to nobody available to take care of her other child. She was discharged with instructions to follow-up with Dr. Trevino in the office to schedule induction of labor after 37 weeks. Patient Condition at Discharge: Good Plan - Discharge Summary New Discharge Prescriptions: No Action Ibuprofen [Motrin] 600 mg PO Q6HR PRN #30 tab PRN Reason: Pain Discharge Medication List Ibuprofen [Motrin] 600 mg PO Q6HR PRN #30 tab 09/06/20 [Rx] Follow up Appointment(s)/Referral(s): Delfino Trevino DO [Doctor of Osteopathic Medicine] - 1-2 Days (Call the office to make appointment) Discharge Disposition: HOME SELF-CARE
== END 2020-09-04 01:12 | disposition home or self-care (01) ==
LOC: FBPOP 19:50 → 4FBP 23:00
PROVIDERS: ADMIT Obstetrics & Gynecology; ATTEND Obstetrics & Gynecology
DX: O13.3 Gestational [pregnancy-induced] hypertension without significant proteinuria, third trimester (principal); O09.33 Supervision of pregnancy with insufficient antenatal care, third trimester; O99.333 Smoking (tobacco) complicating pregnancy, third trimester; O99.513 Diseases of the respiratory system complicating pregnancy, third trimester; Z3A.36 36 weeks gestation of pregnancy; F17.200 Nicotine dependence, unspecified, uncomplicated; J45.909 Unspecified asthma, uncomplicated
CPT/HCPCS: 99214; 59025; 84112; 86900; 86901; 86762; 82570; 84156 ×2; 81050; 82565; 83615; 82947; 84450; 84460; 84520; 84550; 85025; 86850; 87340; 81001; 87491; 87591; 86780; 80306; 87390; 76805; G0378 ×3; 96360; 96361

== ENCOUNTER 2020-09-05 11:41 | Inpatient (IN) | payer BC ==
[2020-09-05] MEDS ORDERED: TERBUTALINE 1 MG/ML VIAL SQ PRN (13:18)
[2020-09-05] MEDS ORDERED: METHYLERGONOVINE 0.2 MG/ML 1 ML AMP IM PRN (13:18)
[2020-09-05] MEDS ORDERED: OXYTOCIN 10 UNIT/ML 1 ML VIAL IM PRN (13:18)
[2020-09-05] MEDS ORDERED: LIDOCAINE 0.5% (PF) 5 MG/ML (50 ML SDV) SQ PRN (13:18)
[2020-09-05] MEDS ORDERED: CARBOPROST TROMETHAMINE 250 MCG/ML 1 ML AMP IM PRN (13:18)
[2020-09-05] MEDS ORDERED: AMPICILLIN 2,000 MG in SODIUM CHLORIDE 0.9% 100 ML IVPB STA (13:18)
[2020-09-05] MEDS ORDERED: LACTATED RINGERS 1,000 ML IV SCH (13:30)
[2020-09-05] MEDS ORDERED: OXYTOCIN 30 UNITS/500 ML NS 30 UNIT in SALINE 1 500ML.BAG IV SCH (13:30)
[2020-09-05 14:49] LABS: Basophils # (A) 0.1 k/uL (0-0.2); Basophils % (A) 1 %; Eosinophils # (A) 0.2 k/uL (0-0.7); Eosinophils % (A) 1 %; HCT 35.6 % (34.0-46.0); HGB 11.1 gm/dL (11.4-16.0); Hypochromasia Marked; Lymphocytes # (A) 3.8 k/uL (1.0-4.8); Lymphocytes % (A) 28 %; MCH 24.2 pg (25.0-35.0); MCV 78.1 fL (80.0-100.0); Mean Platelet Volume 9.4; Monocytes # (A) 0.9 k/uL (0-1.0); Monocytes % (A) 6 %; Neutrophils # (A) 8.5 k/uL (1.3-7.7); Neutrophils % (A) 62 %; Platelet Count 401 k/uL (150-450); Poikilocytosis Slight; RBC 4.56 m/uL (3.80-5.40); RDW 15.2 % (11.5-15.5); WBC 13.7 k/uL (3.8-10.6)
[2020-09-05] MEDS: BUTORPHANOL 1 MG/ML 1 ML VIAL IV PRN ×2 (17:19→19:12)
--- NOTE | 2020-09-05 17:21 | P.HPOB ---
History of Present Illness H&P Date: 09/05/20 Chief Complaint: Intrauterine 36 weeks 6 days gestation: Active labor Patient is a 29-year-old female and this is an interval history and physical as she was just in the hospital a few days ago. She has had no care through the . I did see her in the office today and she is complaining of contractions. The last time she was seen she was dilated to 1 cm 50% effaced. In my office she was 2-3 cm and relating that she was anmol every 3 minutes. I sent her to labor and delivery where after an hour of monitoring she was dilated to 4 cm she was therefore admitted to the hospital for expectation for spontaneous vaginal delivery and prophylactic IV antibiotics as she has no group B strep status. Artificial rupture membranes has been pe rformed and clear fluid is noted. A category 1 tracing has been noted. Her contractions have spaced out slightly and if they continue to be spaced out we'll plan Pitocin augmentation of labor. She is not want an epidural for analgesia but is amenable to IV pain medication. Past Medical History Past Medical History: Asthma History of Any Multi-Drug Resistant Organisms: None Reported Past Surgical History: No Surgical Hx Reported Past Anesthesia/Blood Transfusion Reactions: No Reported Reaction Past Psychological History: Anxiety, Bipolar, Depression Smoking Status: Current every day smoker Past Alcohol Use History: Occasional Past Drug Use History: None Reported - Past Family History Mother Additional Family Medical History / Comment(s): Agent orange exposure from her mother's father, lupus and MS Medications and Allergies Allergies Allergy/AdvReac Type Severity Reaction Status Date / Time venom-honey bee Allergy Swelling Verified 09/05/20 11:47 [bee venom (honey bee)] artificial grape flavor Allergy Swelling Uncoded 09/05/20 11:47 Exam Osteopathic Statement: *. No significant issues noted on an osteopathic st ructural exam other than those noted in the History and Physical/Consult. Vital Signs Temp Pulse Resp BP Pulse Ox 09/05/20 13:38 97.9 F 97 20 140/74 09/05/20 11:48 97.7 F 88 16 137/79 100 Intake and Output 09/05/20 09/05/20 09/05/20 06:59 14:59 22:59 Other: # Voids 1 Weight 56.699 kg - OBG Physical Exam Breast: both: normal (no masses) Abdomen: bowel sounds normal, no diffuse tenderness, no bruit present, no guarding noted, no hepatomegaly, no splenomegaly, no mass Vulva: both: normal Vagina: normal moisture, no discharge Cervix: no lesion, no discharge Uterus: normal size, normal contour Adnexa: both: normal Anus/Rectum: normal perianal skin, no rectal mass, no hemorrhoids, heme negative Results Result Diagrams: 09/05/20 14:33 Abnormal Lab Results - Last 24 Hours (Table) 09/05/20 Range/Units 14:33 WBC 13.7 H (3.8-10.6) k/uL Hgb 11.1 L (11.4-16.0) gm/dL MCV 78.1 L (80.0-100.0) fL MCH 24.2 L (25.0-35.0) pg Neutrophils # 8.5 H (1.3-7.7) k/uL
[2020-09-05] MEDS ORDERED: AMPICILLIN 1,000 MG in SODIUM CHLORIDE 0.9% 50 ML IVPB SCH (18:00)
[2020-09-05] MEDS ORDERED: diphenhydrAMINE 50 MG CAP PO PRN (21:23)
[2020-09-05] MEDS ORDERED: diphenhydrAMINE 25 MG CAP PO PRN (21:23)
[2020-09-05] MEDS ORDERED: ZOLPIDEM 5 MG TAB PO PRN (21:23)
[2020-09-05] MEDS ORDERED: diphenhydrAMINE 50 MG/ML 1 ML VIAL IVP PRN ×2 (21:23)
[2020-09-05] MEDS ORDERED: LANOLIN CREAM 5 GM TUBE TOPICAL PRN (21:23)
[2020-09-05] MEDS ORDERED: ACETAMINOPHEN TAB 325 MG TAB PO PRN (21:23)
[2020-09-05] MEDS ORDERED: SIMETHICONE 80 MG CHEWABLE PO PRN (21:23)
[2020-09-05] MEDS ORDERED: BENZOCAINE/MENTHOL SPRAY 1 GM/SPRAY AEROSOL TOPICAL PRN (21:23)
[2020-09-05] MEDS ORDERED: HYDROcodone/APAP 5-325MG 1 EACH TAB PO PRN (21:23)
[2020-09-05] MEDS ORDERED: HYDROCORTISONE 2.5% RECTAL CREAM 30 GM TUBE RECTAL PRN (21:23)
[2020-09-05] MEDS ORDERED: MEASLES-MUMPS-RUBELLA VACC/PF 12,500 UNIT/0.5 ML VIAL SQ ONE (21:23)
--- NOTE | 2020-09-05 21:27 | P.PROBDLV ---
Vaginal Delivery Note - . Vaginal Delivery Note: Patient progressed to complete and pushing. She began pushing while the nurse was not in the room and delivered the head as the nurse came in the room. I was down the camejo the emergency alarmed but was signaled and I ran to the room. At that time the patient was thrashing in bed and yelling very loudly and refused to push. I did note the baby's head and a nuchal cord 2 was discovered and easily reduced at this point we tried to encourage her to push but she refused and continue discourage further away from in the bed therefore a grasped under the posterior axilla and was able to effect the posterior shoulder delivery followed by the remainder of the baby without difficulty. Mouth nares were then bulb suctioned and nursery personnel was present and assumed care and the cord was allowed to pulsate for approximately 1 minute prior to clamping and cutting. Once this was completed scores were noted to be 8 and 9 at one and 5 minutes Kadie and weight was 5 lbs. 10 oz. Placenta was then delivered intact and Pitocin was added to the IV. Perineum appears intact. Both mother and baby currently are stable following delivery. We'll monitor very closely over the next several hours as she seems to still be in quite a bit of discomfort following the delivery, however is difficult for me to gauge as she is not typically my patient and throughout the labor process there were episodes of erratic behavior
[2020-09-05 21:33] VITALS: RESP 16
[2020-09-05] MEDS: IBUPROFEN 600 MG TAB PO PRN (21:54)
[2020-09-06 04:35] LABS: Glucose,Whole Blood 79 mg/dL (75-99)
[2020-09-06] MEDS ORDERED: Rhogam IMMUNE GLOBULIN 1,500 UNIT/1 ML IM ONE (06:23)
[2020-09-06] MEDS: SENNOSIDES-DOCUSATE SODIUM 1 EACH TAB PO SCH ×2 (08:25→21:42)
--- NOTE | 2020-09-06 11:47 | P.DS ---
Providers Date of admission: 09/05/20 13:01 Expected date of discharge: 09/06/20 Attending physician: Delfino Trevino Primary care physician: Stated None Hospital Course: Tania is doing well this morning. She is ambulating, voiding and tolerating her diet. She voices no complaints. Vital signs are stable and she is afebrile. Heart regular, lungs clear, extremities without pain. Abdomen soft uterus is firm and lochia is reported light. If she can't should likely discharged home today but that will depend on whether not the baby can go home with baby is able to discharge night and she will plan to go home tonight. All questions were otherwise answered for her Patient Condition at Discharge: Good Plan - Discharge Summary New Discharge Prescriptions: New Ibuprofen [Motrin] 600 mg PO Q6HR PRN #30 tab PRN Reason: Pain Discharge Medication List Ibuprofen [Motrin] 600 mg PO Q6HR PRN #30 tab 09/06/20 [Rx] Follow up Appointment(s)/Referral(s): Delfino Trevino DO [Doctor of Osteopathic Medicine] - 6 Weeks Activity/Diet/Wound Care/Special Instructions: No heavy lifting, Limit stairs and driving, and pelvic rest. If any high temperatures, heavy bleeding, or severe pain call my office Discharge Disposition: HOME SELF-CARE
[2020-09-06] MEDS: IBUPROFEN 600 MG TAB PO PRN (19:50)
[2020-09-07] MEDS: IBUPROFEN 600 MG TAB PO PRN (03:17)
[2020-09-07 09:12] VITALS: BP 133/93; PULSE 62; TEMP 98.3
[2020-09-07] MEDS: SENNOSIDES-DOCUSATE SODIUM 1 EACH TAB PO SCH (09:13)
--- NOTE | 2020-09-07 10:31 | P.DS ---
Providers Date of admission: 09/05/20 13:01 Expected date of discharge: 09/07/20 Attending physician: Delfino Trevino Primary care physician: Stated None Hospital Course: Mayra stayed last night as baby was unable to be discharged home. We'll plan discharged home later today. Her vital signs overall are stable. She did have a mildly elevated blood pressure 130/93 this morning, but she relates that at that time she was upset and they took it while she was emotionally upset. Repeat blood pressures have been done have been normal. She has no other signs or symptoms of preeclampsia. She denies headache, epigastric pain or visual changes she has no central or peripheral edema. Her deep tendon reflexes are also +2. She is aware after discharge should she start having signs or symptoms of preeclampsia sheets report to the emergency room immediately for evaluation. It is related to any that even if we wanted to draw blood she would refuse that she has a massive phobia of needles. heart regular, lungs clear, extremities without pain. Abdomen is soft uterus is firm and lochia is reported be light. Assessment day 2. Plan discharged home follow up with me in 6 weeks. Plan - Discharge Summary New Discharge Prescriptions: New Ibuprofen [Motrin] 600 mg PO Q6HR PRN #30 tab PRN Reason: Pain Discharge Medication List Ibuprofen [Motrin] 600 mg PO Q6HR PRN #30 tab 09/06/20 [Rx] Follow up Appointment(s)/Referral(s): Delfino Trevino DO [Doctor of Osteopathic Medicine] - 6 Weeks Activity/Diet/Wound Care/Special Instructions: No heavy lifting, Limit stairs and driving, and pelvic rest. If any high temperatures, heavy bleeding, or severe pain call my office Discharge Disposition: HOME SELF-CARE
== END 2020-09-07 11:15 | disposition home or self-care (01) | DRG 807 ==
LOC: FBPOP 11:41 → 4FBP 13:01
PROVIDERS: ADMIT Obstetrics & Gynecology; ATTEND Obstetrics & Gynecology
PROC: 10E0XZZ Delivery of Products of Conception, External Approach (ICD-10-PCS; principal; 2020-09-05)
DX: O69.81X0 Labor and delivery complicated by cord around neck, without compression, not applicable or unspecified (principal); Z37.0 Single live birth; O99.344 Other mental disorders complicating childbirth; O99.334 Smoking (tobacco) complicating childbirth; F41.9 Anxiety disorder, unspecified; F31.9 Bipolar disorder, unspecified; F17.200 Nicotine dependence, unspecified, uncomplicated; J45.909 Unspecified asthma, uncomplicated; O99.52 Diseases of the respiratory system complicating childbirth; Z3A.36 36 weeks gestation of pregnancy; Z83.2 Family history of diseases of the blood and blood-forming organs and certain disorders involving the immune mechanism; Z91.030 Bee allergy status; Z91.09 Other allergy status, other than to drugs and biological substances
CPT/HCPCS: 59025; 85025; 85461; 88307; 99213

== ENCOUNTER 2021-09-04 19:24 | Emergency (ER) | payer BC ==
[2021-09-04] MEDS ORDERED: SODIUM CHLORIDE 0.9% 500 ML 500 ML IV STA (20:55)
--- NOTE | 2021-09-04 21:03 | ED ---
General Adult HPI - General Chief complaint: Back Pain/Injury Stated complaint: back pain,4-5 months preg(unsure) Time Seen by Provider: 09/04/21 20:50 Source: patient, family, RN notes reviewed, old records reviewed Mode of arrival: ambulatory Limitations: no limitations - History of Present Illness Initial comments: 30-year-old female presents to the emergency room with complaints of nausea, vomiting and low back pain that started today. She states that she's been sick on and off for several weeks. Patient states that she is but has no idea how far along she is. She said she has had many pregnancies and she can't tell me how many but says has 3 children. She believes her last menstrual period was June 11. She tried to take Tylenol this morning around 6:00 but vomited. She denies any diarrhea. She has a history of asthma, she does smoke but denies any drug or alcohol use. She states that she tried to get in to see an LATHMAKER, Dr. Trevino who declined her care as is retiring and told her she needs high risk doctor. Patient denies any vaginal bleeding or vaginal discharge. She has not been vaccinated against Covid by choice. -: days(s) (1) Location: back Radiation: extremity (blle), distal Severity scale (1-10): 9 Quality: constant Consistency: constant Associated Symptoms: fever/chills, headaches, nausea/vomiting Treatments Prior to Arrival: other (tylenol) - Related Data Home Medications Medication Instructions Recorded Confirmed Acetaminophen [Tylenol] 500 mg PO Q4-6H PRN 09/04/21 09/04/21 [id number] Acid 1 cap PO DAILY 09/04/21 09/04/21 [-U Capsule (formulary)] Previous Rx's Medication Instructions Recorded Pnv No.95/Ferrous Fum/Folic AC 1 each PO DAILY #30 tablet 09/04/21 [ Multivitamin Tablet] Allergies Allergy/AdvReac Type Severity Reaction Status Date / Time venom-honey bee Allergy Swelling Verified 09/04/21 23:13 [bee venom (honey bee)] artificial grape flavor Allergy Swelling Uncoded 09/04/21 20:29 Review of Systems ROS Statement: Those systems with pertinent positive or pertinent negative responses have been documented in the HPI. ROS Other: All systems not noted in ROS Statement are negative. Past Medical History Past Medical History: Asthma History of Any Multi-Drug Resistant Organisms: None Reported Past Surgical History: No Surgical Hx Reported Past Anesthesia/Blood Transfusion Reactions: No Reported Reaction Past Psychological History: Anxiety, Bipolar, Depression Smoking Status: Current every day smoker Past Alcohol Use History: Occasional Past Drug Use History: Marijuana - Past Family History Mother Additional Family Medical History / Comment(s): Agent orange exposure from her mother's father, lupus and MS General Exam Limitations: no limitations General appearance: alert, in distress (pain) Eye exam: Present: normal appearance, PERRL, EOMI. Absent: scleral icterus, conjunctival injection, nystagmus, periorbital swelling ENT exam: Present: mucous membranes moist Neck exam: Present: normal inspection, full ROM. Absent: tenderness, meningismus, lymphadenopathy Respiratory exam: Present: normal lung sounds bilaterally. Absent: respiratory distress, wheezes, rales, rhonchi, stridor, accessory muscle use Cardiovascular Exam: Present: tachycardia. Absent: JVD GI/Abdominal exam: Present: soft, distended. Absent: tenderness Back exam: Present: normal inspection, full ROM, tenderness (LS spine). Absent: CVA tenderness (R), CVA tenderness (L), rash noted Neurological exam: Present: alert, oriented X3 Expanded Patient oriented to: Present: person, place, time Speech: Present: fluid speech Eye Response: (4) open spontaneously Motor Response: (6) obeys commands Verbal Response: (5) oriented Emir Total: 15 Psychiatric exam: Present: anxious Skin exam: Present: warm, dry. Absent: cyanosis, diaphoretic Course Vital Signs 09/04/21 09/04/21 20:25 23:56 Temperature 99.9 F H Pulse Rate 123 H 113 H Respiratory 22 18 Rate Blood Pressure 125/79 103/52 O2 Sat by Pulse 99 97 Oximetry Medical Decision Making - Medical Decision Making 30-year-old female presents to the emergency room with complaints of several weeks of nausea, vomiting and low back pain on and off. She states worsening symptoms over the past few days. She states that she does not have an LATHMAKER. Patient denies any vaginal bleeding or vaginal discharge. There is no evidence of leukocytosis. Uric acid is 2.7. [place] [address].0 UA is negative for infection. She is positive for marijuana and she is positive for coronavirus. Transabdominal ultrasound shows intrauterine with gestational age of 14 weeks getting process seen, heart rate 156. She was offered monoclonal antibodies and refused. Patient will be discharged home and directed to self quarantine for 10 days from symptom onset and 24 hours without a fever. Family member at bedside states that they're trying to get into see Dr. Cabrera will try to contact them next week. Prescription for vitamins was written. Patient instructed to return to the emergency room with any new or concerning sy mptoms. Case discussed with Dr. Boss - Lab Data Result diagrams: 09/04/21 21:36 09/04/21 21:36 Lab Results 09/04/21 09/04/21 09/04/21 Range/Units 21:36 21:36 21:36 WBC 10.0 (3.8-10.6) k/uL RBC 4.09 (3.80-5.40) m/uL Hgb 11.7 (11.4-16.0) gm/dL Hct 35.6 (34.0-46.0) % MCV 87.0 (80.0-100.0) fL MCH 28.7 (25.0-35.0) pg MCHC 33.0 (31.0-37.0) g/dL RDW 14.6 (11.5-15.5) % Plt Count 291 (150-450) k/uL MPV 7.6 Neutrophils % 84 % Lymphocytes % 4 % Monocytes % 9 % Eosinophils % 1 % Basophils % 1 % Neutrophils # 8.4 H (1.3-7.7) k/uL Lymphocytes # 0.4 L (1.0-4.8) k/uL Monocytes # 0.9 (0-1.0) k/uL Eosinophils # 0.1 (0-0.7) k/uL Basophils # 0.1 (0-0.2) k/uL PT 9.7 (9.0-12.0) sec INR 0.9 (<1.2) Sodium 132 L (137-145) mmol/L Potassium 3.9 (3.5-5.1) mmol/L Chloride 102 (98-107) mmol/L Carbon Dioxide 23 (22-30) mmol/L Anion Gap 7 mmol/L BUN 5 L (7-17) mg/dL Creatinine 0.56 (0.52-1.04) mg/dL Est GFR (CKD-EPI)AfAm >90 (>60 ml/min/1.73 sqM) Est GFR (CKD-EPI)NonAf >90 (>60 ml/min/1.73 sqM) Glucose 89 (74-99) mg/dL Uric Acid 2.7 L (3.7-7.4) mg/dL Calcium 8.8 (8.4-10.2) mg/dL Total Bilirubin 0.3 (0.2-1.3) mg/dL AST 25 (14-36) U/L ALT 15 (4-34) U/L Alkaline Phosphatase 49 (38-126) U/L Lactate Dehydrogenase 473 (313-618) U/L Total Protein 7.0 (6.3-8.2) g/dL Albumin 4.0 (3.5-5.0) g/dL HCG, Quant 91957.0 mIU/mL Urine Color Urine Appearance (Clear) Urine pH (5.0-8.0) Ur Specific Keller (1.001-1.035) Urine Protein (Negative) Urine Glucose (UA) (Negative) Urine Ketones (Negative) Urine Blood (Negative) Urine Nitrite (Negative) Urine Bilirubin (Negative) Urine Urobilinogen (<2.0) mg/dL Ur Leukocyte Esterase (Negative) Urine RBC (0-5) /hpf Urine WBC (0-5) /hpf Ur Squamous Epith Cells (0-4) /hpf Urine Mucus (None) /hpf Urine HCG, Qual (Not Detectd) Urine Opiates Screen (NotDetected) Ur Oxycodone Screen (NotDetected) Urine Methadone Screen (NotDetected) Ur Propoxyphene Screen (NotDetected) Ur Barbiturates Screen (NotDetected) U Tricyclic Antidepress (NotDetected) Ur Phencyclidine Scrn (NotDetected) Ur Amphetamines Screen (NotDetected) U Methamphetamines Scrn (NotDetected) U Benzodiazepines Scrn (NotDetected) Urine Cocaine Screen (NotDetected) U Marijuana (THC) Screen (NotDetected) Influenza Type A (PCR) (Not Detectd) Influenza Type B (PCR) (Not Detectd) RSV (PCR) (Not Detectd) SARS-CoV-2 (PCR) (Not Detectd) 09/04/21 09/04/21 09/04/21 Range/Units 21:36 21:36 21:47 WBC (3.8-10.6) k/uL RBC (3.80-5.40) m/uL Hgb (11.4-16.0) gm/dL Hct (34.0-46.0) % MCV (80.0-100.0) fL MCH (25.0-35.0) pg MCHC (31.0-37.0) g/dL RDW (11.5-15.5) % Plt Count (150-450) k/uL MPV Neutrophils % % Lymphocytes % % Monocytes % % Eosinophils % % Basophils % % Neutrophils # (1.3-7.7) k/uL Lymphocytes # (1.0-4.8) k/uL Monocytes # (0-1.0) k/uL Eosinophils # (0-0.7) k/uL Basophils # (0-0.2) k/uL PT (9.0-12.0) sec INR (<1.2) Sodium (137-145) mmol/L Potassium (3.5-5.1) mmol/L Chloride (98-107) mmol/L Carbon Dioxide (22-30) mmol/L Anion Gap mmol/L BUN (7-17) mg/dL Creatinine (0.52-1.04) mg/dL Est GFR (CKD-EPI)AfAm (>60 ml/min/1.73 sqM) Est GFR (CKD-EPI)NonAf (>60 ml/min/1.73 sqM) Glucose (74-99) mg/dL Uric Acid (3.7-7.4) mg/dL Calcium (8.4-10.2) mg/dL Total Bilirubin (0.2-1.3) mg/dL AST (14-36) U/L ALT (4-34) U/L Alkaline Phosphatase (38-126) U/L Lactate Dehydrogenase (313-618) U/L Total Protein (6.3-8.2) g/dL Albumin (3.5-5.0) g/dL HCG, Quant mIU/mL Urine Color Yellow Urine Appearance Cloudy H (Clear) Urine pH 6.0 (5.0-8.0) Ur Specific Keller 1.026 (1.001-1.035) Urine Protein 1+ H (Negative) Urine Glucose (UA) Negative (Negative) Urine Ketones 1+ H (Negative) Urine Blood Negative (Negative) Urine Nitrite Negative (Negative) Urine Bilirubin Negative (Negative) Urine Urobilinogen <2.0 (<2.0) mg/dL Ur Leukocyte Esterase Negative (Negative) Urine RBC 2 (0-5) /hpf Urine WBC 8 H (0-5) /hpf Ur Squamous Epith Cells 25 H (0-4) /hpf Urine Mucus Many H (None) /hpf Urine HCG, Qual Detected (Not Detectd) Urine Opiates Screen Not Detected (NotDetected) Ur Oxycodone Screen Not Detected (NotDetected) Urine Methadone Screen Not Detected (NotDetected) Ur Propoxyphene Screen Not Detected (NotDetected) Ur Barbiturates Screen Not Detected (NotDetected) U Tricyclic Antidepress Not Detected (NotDetected) Ur Phencyclidine Scrn Not Detected (NotDetected) Ur Amphetamines Screen Not Detected (NotDetected) U Methamphetamines Scrn Not Detected (NotDetected) U Benzodiazepines Scrn Not Detected (NotDetected) Urine Cocaine Screen Not Detected (NotDetected) U Marijuana (THC) Screen Detected H (NotDetected) Influenza Type A (PCR) Not Detected (Not Detectd) Influenza Type B (PCR) Not Detected (Not Detectd) RSV (PCR) Not Detected (Not Detectd) SARS-CoV-2 (PCR) Detected A (Not Detectd) Disposition Clinical Impression: COVID-19, Disposition: HOME SELF-CARE Condition: Good Instructions (If sedation given, give patient instructions): Coronavirus Disease 2019 (COVID-19), (ED) Additional Instructions: Self quarantine until resolution of symptoms. Follow-up with your primary care doctor and [facility] for care. Take vitamins as prescribed. Return to the emergency room if any new or concerning symptoms including increased pain, vaginal bleeding or persistent nausea vomiting. Prescriptions: Pnv No.95/Ferrous Fum/Folic AC [ Multivitamin Tablet] 1 each PO DAILY #30 tablet Is patient prescribed a controlled substance at d/c from ED?: No Referrals: None,Stated [Primary Care Provider] - 1-2 days Time of Disposition: 00:16
[2021-09-04 21:51] LABS: Basophils # (A) 0.1 k/uL (0-0.2); Basophils % (A) 1 %; Eosinophils # (A) 0.1 k/uL (0-0.7); Eosinophils % (A) 1 %; HCT 35.6 % (34.0-46.0); HGB 11.7 gm/dL (11.4-16.0); Lymphocytes # (A) 0.4 k/uL (1.0-4.8); Lymphocytes % (A) 4 %; MCH 28.7 pg (25.0-35.0); Mean Platelet Volume 7.6; Monocytes # (A) 0.9 k/uL (0-1.0); Monocytes % (A) 9 %; Neutrophils # (A) 8.4 k/uL (1.3-7.7); Neutrophils % (A) 84 %; Platelet Count 291 k/uL (150-450); RBC 4.09 m/uL (3.80-5.40); RDW 14.6 % (11.5-15.5)
[2021-09-04 22:01] LABS: ALT 15 U/L (4-34); AST 25 U/L (14-36); African American GFR (CKD) >90 (>60 ml/min/1.73 sqM); Alkaline Phosphatase 49 U/L (38-126); Anion Gap 7 mmol/L; Blood Urea Nitrogen 5 mg/dL (7-17); Calcium 8.8 mg/dL (8.4-10.2); Carbon Dioxide 23 mmol/L (22-30); Chloride 102 mmol/L (98-107); Glucose 89 mg/dL (74-99); LDH 473 U/L (313-618); Non-African American GFR(CKD) >90 (>60 ml/min/1.73 sqM); Potassium 3.9 mmol/L (3.5-5.1); Sodium 132 mmol/L (137-145); Total Bilirubin 0.3 mg/dL (0.2-1.3); Uric Acid 2.7 mg/dL (3.7-7.4)
[2021-09-04 22:14] LABS: INR 0.9 (<1.2); Prothrombin Time 9.7 sec (9.0-12.0)
[2021-09-04 22:20] LABS: Appearance,Urine Cloudy (Clear); Bilirubin,Urine Negative (Negative); Blood,Urine Negative (Negative); Color,Urine Yellow; Glucose,Urine (UA) Negative (Negative); Ketones,Urine 1+ (Negative); Leukocyte Esterase,Urine Negative (Negative); Mucus,Urine Many /hpf; Nitrite,Urine Negative (Negative); Protein,Urine 1+ (Negative); RBC,Urine 2 /hpf (0-5); Specific Gravity,Urine 1.026 (1.001-1.035); Squamous Epithelial Cell,Urine 25 /hpf (0-4); Urobilinogen,Urine <2.0 mg/dL (<2.0); WBC,Urine 8 /hpf (0-5)
[2021-09-04] MEDS ORDERED: SODIUM CHLORIDE 0.9% 500 ML 500 ML IV ONE (22:26)
[2021-09-04 22:28] LABS: Amphetamine Screen,Urine Not Detected (NotDetected); Barbiturate Screen,Urine Not Detected (NotDetected); Benzodiazepines Screen,Urine Not Detected (NotDetected); Cocaine Screen,Urine Not Detected (NotDetected); Methadone Screen, Urine Not Detected (NotDetected); Opiate Screen,Urine Not Detected (NotDetected); Oxycodone Screen, Urine Not Detected (NotDetected); Phencyclidine Screen,Urine Not Detected (NotDetected); Tricyclic Antidepressant,Urine Not Detected (NotDetected); Urn Cannabinoid Scrn Detected (NotDetected)
[2021-09-04] MEDS ORDERED: ACETAMINOPHEN TAB 500 MG TAB PO STA (23:33)
[2021-09-04] MEDS ORDERED: diphenhydrAMINE 50 MG/ML 1 ML VIAL IVP STA (23:45)
--- NOTE | 2021-09-04 23:54 | US ---
EXAMINATION TYPE: Transabdominal DATE OF EXAM: 09/04/2021 11:26 PM COMPARISON: NONE CLINICAL HISTORY: pain. back pain EXAM PERFORMED: Transabdominal (TA) EXAM MEASUREMENTS: GESTATIONAL AGE / DATING Physician Established: Not yet established Dates by LMP: LMP unknown Dates by First Scan: No previous this is first scan Dates by Current Scan for: (14 weeks/0 days) EDC: 03/05/22 MATERNAL ANATOMY Uterus: 12.8 x 7.8 x 11.5cm Right Ovary: 2.7 x 2.0 x 2.1cm Left Ovary: 2.8 x 1.3 x 2.1cm Post CDS / Adnexa: appears wnl Presence of free fluid: no Presence of corpus luteal cyst: yes, hypoechoic area right ovary = 2.0 x 2.0 x 1.7cm GESTATION / SURVEY CRL: 7.8cm (14 weeks/0 days) Yolk Sac (normal less than 6mm): not seen Heart Rate: 156 bpm Rhythm: Normal IUP: Viable IUP Date of LMP: unknown Beta HcG (if available): 02022 IMPRESSION: The ultrasound gestational age is 14 weeks. No complicating process seen.
[2021-09-05 00:29] VITALS: BP 127/77; PULSE 65; RESP 22; TEMP 97.7
== END 2021-09-05 00:28 | disposition home or self-care (01) ==
LOC: EC 19:24
DX: U07.1 COVID-19 (principal); O98.512 Other viral diseases complicating pregnancy, second trimester; O21.9 Vomiting of pregnancy, unspecified; O26.892 Other specified pregnancy related conditions, second trimester; O99.332 Smoking (tobacco) complicating pregnancy, second trimester; O99.512 Diseases of the respiratory system complicating pregnancy, second trimester; M54.50 Low back pain, unspecified; F17.200 Nicotine dependence, unspecified, uncomplicated; J45.909 Unspecified asthma, uncomplicated; Z91.030 Bee allergy status; Z91.02 Food additives allergy status; Z3A.14 14 weeks gestation of pregnancy
CPT/HCPCS: 36415; 76801; 80053; 80306; 81001; 81025; 83615; 84550; 84702; 85025; 85610; 87636; 96360; 99284

== ENCOUNTER 2022-02-08 21:55 | Outpatient (CLI) | payer BC ==
[2022-02-08 23:50] VITALS: BP 135/89; PULSE 110; RESP 16; TEMP 98.1
[2022-02-09 00:18] LABS: Amphetamine Screen,Urine Not Detected (NotDetected); Barbiturate Screen,Urine Not Detected (NotDetected); Benzodiazepines Screen,Urine Not Detected (NotDetected); Cocaine Screen,Urine Not Detected (NotDetected); Methadone Screen, Urine Not Detected (NotDetected); Opiate Screen,Urine Not Detected (NotDetected); Oxycodone Screen, Urine Not Detected (NotDetected); Phencyclidine Screen,Urine Not Detected (NotDetected); Tricyclic Antidepressant,Urine Not Detected (NotDetected); Urn Cannabinoid Scrn Detected (NotDetected)
--- NOTE | 2022-02-16 09:14 | P.MSEPDOC ---
Presenting Problems - Arrival Data Date of Arrival on Unit: 02/08/22 Time of Arrival on Unit: 22:00 Mode of Transport: Wheelchair - Complaint OB-Reason for Admission/Chief Complaint: Possible Onset of Labor Comment: contractions since 1699 Medical History - Information : 4 Para: 3 Term: 3 : 0 Abortions: Spontaneous or Elective: 0 Number of Living Children: 3 - Gestational Age Gestational Age by IDANIA (wks/days): 36 Weeks and 3 Days - History Comment: pt has had limited care Review of Systems - Review of Systems Constitutional: No problems Breast: No problems ENT: No problems Cardiovascular: No problems Respiratory: No problems Gastrointestinal: No problems Genitourinary: No problems Musculoskeletal: No problems Neurological: No problems Skin: No problems Comment: pt has scabs on body, all teeth are rotten and black. Vital Signs - Temperature Temperature: 98.1 F Temperature Source: Temporal Artery Scan - Pulse Right Sitting Pulse Rate: 110 Pulse Assessment Method: Automatic Cuff - Respirations Respiratory Rate: 16 Oxygen Delivery Method: Room Air O2 Sat by Pulse Oximetry: 98 - Blood Pressure Right Arm Sitting Blood Pressure: 135/89 Blood Pressure Mean: 104 Blood Pressure Source: Automatic Cuff Medical Screen Scoring - Cervical Exam Dilation (cm): 2 Effacement (%): 50 Station: -3 Membranes: Intact - Uterine Contractions Frequency From (mins): 2 Frequency To (mins): 3 - Assessment - Baby A Baseline FHR: 125 Heart Rate - NICHD Category: Category I (Normal) NST: Reactive Physician Notification - Physician Notified Physician Notified Date: 02/08/22 Physician Notified Time: 23:24 Physician: Madeleine De Santiago New Order Received: Yes (D/C home, keep apt for tomorrow am, send UDS) Maternal Triage Index - Maternal Triage Index Presenting for scheduled procedure w/no complaint: No - Stat/Priority 1 Stat Priority 1: No - Urgent/Priority 2 Urgent Priority 2: No - Prompt/Priority 3 Prompt Priority 3: No - Non-Urgent/Priority 4 Non-Urgent Priority 4: Yes Criteria Met for Priority 4: contractions since 1699 Disposition - Disposition OB Disposition: Physician follow up in office, Discharge to home, Written follow up instructions reviewed Discharge Date: 02/08/22 Discharge Time: 23:35 I agree with the RN Medical Screening Exam: Yes Case reviewed; plan agreed upon as documented in EMR&OBIX.: Yes Diagnosis: FALSE LABOR BEFORE 37 COMPLETED WEEKS OF GEST, THIRD TRI
== END 2022-02-08 23:35 | disposition home or self-care (01) ==
LOC: FBPOP 21:55
PROVIDERS: ATTEND Obstetrics & Gynecology
DX: O47.03 False labor before 37 completed weeks of gestation, third trimester (principal); Z3A.36 36 weeks gestation of pregnancy
CPT/HCPCS: 59025; 80306; 99213

== ENCOUNTER 2022-02-14 13:49 | Inpatient (IN) | payer BC ==
[2022-02-14] MEDS ORDERED: CARBOPROST TROMETHAMINE 250 MCG/ML 1 ML AMP IM PRN (14:02)
[2022-02-14] MEDS ORDERED: METHYLERGONOVINE 0.2 MG/ML 1 ML AMP IM PRN (14:02)
[2022-02-14] MEDS ORDERED: OXYTOCIN 10 UNIT/ML 1 ML VIAL IM PRN (14:02)
[2022-02-14] MEDS ORDERED: LIDOCAINE 0.5% (PF) 5 MG/ML (50 ML SDV) SQ PRN (14:02)
[2022-02-14] MEDS ORDERED: TERBUTALINE 1 MG/ML VIAL SQ PRN (14:02)
[2022-02-14] MEDS ORDERED: LACTATED RINGERS 1,000 ML IV SCH (14:15)
[2022-02-14 14:28] LABS: Basophils # (A) 0.1 k/uL (0-0.2); Basophils % (A) 1 %; Eosinophils # (A) 0.2 k/uL (0-0.7); Eosinophils % (A) 2 %; HCT 32.4 % (34.0-46.0); HGB 10.2 gm/dL (11.4-16.0); Hypochromasia Marked; Lymphocytes # (A) 2.4 k/uL (1.0-4.8); Lymphocytes % (A) 28 %; MCH 25.6 pg (25.0-35.0); MCHC 31.6 g/dL (31.0-37.0); MCV 81.1 fL (80.0-100.0); Mean Platelet Volume 8.2; Monocytes # (A) 0.6 k/uL (0-1.0); Monocytes % (A) 8 %; Neutrophils # (A) 4.8 k/uL (1.3-7.7); Neutrophils % (A) 58 %; Platelet Count 322 k/uL (150-450); Poikilocytosis Slight; RBC 3.99 m/uL (3.80-5.40); RDW 15.1 % (11.5-15.5); WBC 8.3 k/uL (3.8-10.6)
--- NOTE | 2022-02-14 14:42 | P.HPOB ---
History of Present Illness H&P Date: 02/14/22 Chief Complaint: IUP @ 37 weeks active labor This is a 31-year-old 4 para 2103 at 37 weeks of gestation that presents with complaints of contractions that woke her from sleep this afternoon. Estimated due date of 03/05 based on ultrasound done in August. Patient noted increased vaginal bleeding in addition therefore she presented to labor and delivery for evaluation. In triage she was noted be 6 cm. Patient was admitted. Patient states she noted good movement denies loss of fluid. Patient has been receiving routine care since 31 weeks with [facility], she has a known hearing impairment for which she reads lips. She has a history of a del arsenio at 36 weeks with elevated blood pressure but negative preeclampsia workup with her last . Patient in addition has gestational anemia and is a smoker. She admits to THC use. She has a known blood type of A-, rubella status immune, RPR is nonreactive, hepatitis B surface antigen negative, HIV is negative, gonorrhea including cultures were negative. GBS cultures are negative. Review of Systems Constitutional: Denies chills, Denies fatigue, Denies fever Ears, nose, mouth and throat: Denies headache Cardiovascular: Denies leg edema Respiratory: Denies dyspnea Gastrointestinal: Denies nausea, Denies vomiting Genitourinary: Reports Past Medical History Past Medical History: Asthma History of Any Multi-Drug Resistant Organisms: None Reported Past Surgical History: No Surgical Hx Reported Past Anesthesia/Blood Transfusion Reactions: No Reported Reaction Smoking Status: Never smoker - Past Family History Mother Additional Family Medical History / Comment(s): Agent orange exposure from her mother's father, lupus and MS Medications and Allergies Home Medications Medication Instructions Recorded Confirmed Type Albuterol Inhaler [Ventolin Hfa 1 - 2 puff INHALATION Q4H PRN 02/08/22 02/14/22 History Inhaler] Ferrous Sulfate [Iron] 1 tab PO DAILY 02/08/22 02/14/22 History Vit No.180/Iron/Folic 1 tab PO DAILY 02/08/22 02/14/22 History [ Plus Vitamin-Mineral] Allergies Allergy/AdvReac Type Severity Reaction Status Date / Time venom-honey bee Allergy Swelling Verified 02/14/22 13:54 [bee venom (honey bee)] artificial grape flavor Allergy Swelling Uncoded 02/14/22 13:54 Exam Osteopathic Statement: *. No significant issues noted on an osteopathic structural exam other than those noted in the History and Physical/Consult. 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 heart tones returned be category 1, she is anmol every 4 minutes, on cervical exam she is 6/80/-2 amniotomy is performed and clear fluid was obtained. Results Result Diagrams: 02/14/22 14:15 Abnormal Lab Results - Last 24 Hours (Table) 02/14/22 Range/Units 14:15 Hgb 10.2 L (11.4-16.0) gm/dL Hct 32.4 L (34.0-46.0) % Assessment and Plan (1) 37 weeks gestation of Current Visit: Yes Status: Acute Code(s): Z3A.37 - 37 WEEKS GESTATION OF SNOMED Code(s): 58370048 (2) Active labor Current Visit: Yes Status: Acute Code(s): OFB9784 - SNOMED Code(s): 819370056 Plan: 31-year-old at 37 weeks of gestation presents with complaints of painful contractions and vaginal bleeding after waking from a nap. Patient is admitted to labor and delivery for expectant management, amniotomy is performed clear fluid was obtained. Patient declined Stadol or epidural. Anticipate spontaneous vaginal delivery.
[2022-02-14 14:45] LABS: Amphetamine Screen,Urine Detected (NotDetected); Barbiturate Screen,Urine Not Detected (NotDetected); Benzodiazepines Screen,Urine Not Detected (NotDetected); Cocaine Screen,Urine Not Detected (NotDetected); Methadone Screen, Urine Not Detected (NotDetected); Opiate Screen,Urine Not Detected (NotDetected); Oxycodone Screen, Urine Not Detected (NotDetected); Phencyclidine Screen,Urine Not Detected (NotDetected); Tricyclic Antidepressant,Urine Not Detected (NotDetected); Urn Cannabinoid Scrn Detected (NotDetected)
[2022-02-14] MEDS ORDERED: HYDROCORTISONE 2.5% RECTAL CREAM 30 GM TUBE RECTAL PRN (15:53)
[2022-02-14] MEDS ORDERED: ACETAMINOPHEN TAB 325 MG TAB PO PRN (15:53)
[2022-02-14] MEDS ORDERED: diphenhydrAMINE 50 MG/ML 1 ML VIAL IVP PRN ×2 (15:53)
[2022-02-14] MEDS ORDERED: diphenhydrAMINE 50 MG CAP PO PRN (15:53)
[2022-02-14] MEDS ORDERED: diphenhydrAMINE 25 MG CAP PO PRN (15:53)
[2022-02-14] MEDS ORDERED: ZOLPIDEM 5 MG TAB PO PRN (15:53)
[2022-02-14] MEDS ORDERED: BENZOCAINE/MENTHOL SPRAY 1 GM/SPRAY AEROSOL TOPICAL PRN (15:53)
[2022-02-14] MEDS ORDERED: SIMETHICONE 80 MG CHEWABLE PO PRN (15:53)
[2022-02-14] MEDS ORDERED: LANOLIN CREAM 5 GM TUBE TOPICAL PRN (15:53)
--- NOTE | 2022-02-14 15:53 | P.PROBDLV ---
Vaginal Delivery Note - . Vaginal Delivery Note: 31-year-old 4 para [birth year]/2002 that presented to labor and delivery at 37 and 2/sevenths weeks with complaints of regular painful contractions and bleeding upon waking from a nap. Patient has received read routine care since 31 weeks. Patient did have a UDS on admission that was positive for methamphetamines, amphetamines and THC. Patient was admitted to labor and delivery and amniotomy was performed, clear fluid was obtained. Patient was noted to be 6 cm. Patient made good progress towards complete. Patient was placed in the modified lithotomy position and with excellent maternal effort brought the baby be down to a presentation, with additional pushes the anterior/posterior shoulder were delivered. The body was then placed on the maternal abdomen, spontaneous cry was noted at . After two-minute delayed the umbilical cord was doubly clamped and cut and the placenta was delivered spontaneously intact with a three-vessel cord being noted. Cord blood was taken prior to delivery of the placenta secondary to her blood type of A-. On inspection the patient's vaginal vault no vaginal lacerations were appreciated. All counts were noted be correct 2 at the delivery. Patient and infant tolerated delivery well and are resting comfortably.
[2022-02-14] MEDS ORDERED: OXYTOCIN 30 UNITS/500 ML NS 30 UNIT in SALINE 1 500ML.BAG IV SCH (16:00)
[2022-02-14] MEDS: IBUPROFEN 600 MG TAB PO SCH (17:13)
[2022-02-14] MEDS: SENNOSIDES-DOCUSATE SODIUM 1 EACH TAB PO SCH (20:13)
[2022-02-15] MEDS: IBUPROFEN 600 MG TAB PO SCH ×5 (08:16→21:07)
[2022-02-15] MEDS: SENNOSIDES-DOCUSATE SODIUM 1 EACH TAB PO SCH ×2 (08:16→23:37)
--- NOTE | 2022-02-15 11:38 | P.PNOBGVD ---
Subjective - Subjective Patient reports: Reports appetite normal, Reports voiding normally, Reports pain well controlled, Reports ambulating normally : doing well, in NICU (Monitoring for possible withdrawal.) Objective - Latest Vital Signs Latest vital signs: Vital Signs Temp Pulse Resp BP Pulse Ox 02/15/22 08:00 98.1 F 86 18 116/83 02/14/22 23:22 98.2 F 82 18 107/65 99 02/14/22 20:00 97.9 F 84 17 109/73 99 02/14/22 17:50 97.7 F 108 H 14 126/94 02/14/22 17:20 78 14 115/78 02/14/22 16:50 90 14 117/81 02/14/22 16:35 81 14 122/91 02/14/22 16:20 74 14 127/85 02/14/22 16:05 80 14 133/80 02/14/22 15:50 97.8 F 77 14 134/82 02/14/22 15:11 96.9 F L 89 14 118/73 02/14/22 14:42 96.9 F L 89 14 118/73 Intake and Output 02/14/22 02/15/22 02/15/22 22:59 06:59 14:59 Intake Total 167 Output Total 500 Balance -333 Intake: Intake, IV Titration 167 Amount Oxytocin 30 Units/500 ml 167 Ns 30 unit In Saline 1 500ml.bag @ Per Protocol IV .Q0M [facility] Rx#:[id number] Output: Output, Quantitative 500 Blood Loss Other: # Voids 1 1 - Exam Extremities: Present: normal Abdomen: Present: normal appearance, soft Uterus: Present: normal, firm (The uterine fundus as tonic and nontender just below the umbilicus.) - Labs Labs: Abnormal Lab Results - Last 24 Hours (Table) 02/14/22 02/14/22 Range/Units 14:15 14:15 Hgb 10.2 L (11.4-16.0) gm/dL Hct 32.4 L (34.0-46.0) % Ur Amphetamines Screen Detected H (NotDetected) U Methamphetamines Scrn Detected H (NotDetected) U Marijuana (THC) Screen Detected H (NotDetected) Assessment and Plan (1) Normal spontaneous vaginal delivery Current Visit: Yes Status: Acute Code(s): O80 - ENCOUNTER FOR FULL-TERM UNCOMPLICATED DELIVERY SNOMED Code(s): 97360987 Plan: Continue routine care. I would anticipate discharge home tomorrow pending complications.
[2022-02-16] MEDS: IBUPROFEN 600 MG TAB PO SCH ×2 (05:01→13:10)
[2022-02-16] MEDS: SENNOSIDES-DOCUSATE SODIUM 1 EACH TAB PO SCH (08:43)
--- NOTE | 2022-02-16 08:54 | P.DS ---
Providers Date of admission: 02/14/22 14:02 Expected date of discharge: 02/16/22 Attending physician: Lynnette Guzman Primary care physician: Stated None - Discharge Diagnosis(es) (1) Normal spontaneous vaginal delivery Current Visit: Yes Status: Acute Hospital Course: The patient's is a 31-year-old 4 para 09/22/2001 admitted at 37 weeks in early active labor. Her was, by late presentation. She does admit to using marijuana during the . She also is known to be Rh- and received RhoGAM during the . On labor and delivery, all signs were reassuring. She underwent artificial rupture of membranes for clear fluid. She then made progress through the active phase of labor ultimately progressed to complete where after she pushed to a normal spontaneous vaginal delivery of a viable 6 lbs. 5 oz. baby boy with Apgars of 8 at 1 minute and 9 at 5 minutes. Her course was unremarkable though her drug screen on admission was positive for amphetamines as well as methamphetamines and THC. As a result, the infant was taken to the nursery for observation and withdrawal. Vital signs are stable and she was afebrile throughout. She was deemed stable for discharge on day #2 was discharged home to follow-up in the office in 5 weeks for a visit at which time we intended to schedule laparoscopic bilateral tubal occlusion with Filshie clips. She is instructed to have nothing in the vagina for at least 6 weeks time to include intercourse. She is additionally to call for any significantly increased bleeding or foul-smelling lochia, significantly increased fever abdominal pain, perineal complaints, breast complaints, or anything else that concerned her. She understood her instruct ions and agrees to follow up as noted above. Discharge medications included only [id number] analgesic pain medications as well as vitamins as she intends to try to breast-feed. Maternal blood type is A- and cord blood was sent for evaluation for the necessity of RhoGAM prior to discharge. Rubella status is immune. Procedures: #1. Artificial rupture of membranes #2. Normal spontaneous vaginal delivery Patient Condition at Discharge: Stable Plan - Discharge Summary New Discharge Prescriptions: No Action Ferrous Sulfate [Iron] 1 tab PO DAILY Albuterol Inhaler [Ventolin Hfa Inhaler] 1 - 2 puff INHALATION Q4H PRN PRN Reason: Shortness Of Breath Or Wheezing Vit No.180/Iron/Folic [ Plus Vitamin-Mineral] 1 tab PO DAILY Discharge Medication List Albuterol Inhaler [Ventolin Hfa Inhaler] 1 - 2 puff INHALATION Q4H PRN 02/08/22 [History] Ferrous Sulfate [Iron] 1 tab PO DAILY 02/08/22 [History] Vit No.180/Iron/Folic [ Plus Vitamin-Mineral] 1 tab PO DAILY 02/08/22 [History] Follow up Appointment(s)/Referral(s): Bravo Pickering MD [STAFF PHYSICIAN] - 6 Weeks Discharge Disposition: HOME SELF-CARE
[2022-02-16 17:28] VITALS: BP 105/7; PULSE 70; RESP 16; TEMP 98.2
== END 2022-02-16 14:15 | disposition home or self-care (01) | DRG 806 ==
LOC: FBPOP 13:49 → 4FBP 14:02
PROVIDERS: ADMIT Obstetrics & Gynecology Obstetrics; ATTEND Obstetrics & Gynecology Obstetrics
PROC: 10E0XZZ Delivery of Products of Conception, External Approach (ICD-10-PCS; principal; 2022-02-14)
PROC: 10907ZC Drainage of Amniotic Fluid, Therapeutic from Products of Conception, Via Natural or Artificial Opening (ICD-10-PCS; principal; 2022-02-14)
PROC: 3E0234Z Introduction of Serum, Toxoid and Vaccine into Muscle, Percutaneous Approach (ICD-10-PCS; principal; 2022-02-14)
DX: O67.9 Intrapartum hemorrhage, unspecified (principal); O99.324 Drug use complicating childbirth; Z37.0 Single live birth; O99.354 Diseases of the nervous system complicating childbirth; O26.893 Other specified pregnancy related conditions, third trimester; Z67.11 Type A blood, Rh negative; F12.90 Cannabis use, unspecified, uncomplicated; F15.90 Other stimulant use, unspecified, uncomplicated; Z3A.37 37 weeks gestation of pregnancy; O99.02 Anemia complicating childbirth; O99.334 Smoking (tobacco) complicating childbirth; F17.210 Nicotine dependence, cigarettes, uncomplicated; H91.90 Unspecified hearing loss, unspecified ear; O99.52 Diseases of the respiratory system complicating childbirth; J45.909 Unspecified asthma, uncomplicated; Z28.310 Unvaccinated for COVID-19; Z87.59 Personal history of other complications of pregnancy, childbirth and the puerperium; Z91.030 Bee allergy status; Z91.018 Allergy to other foods; Z79.899 Other long term (current) drug therapy; Z82.69 Family history of other diseases of the musculoskeletal system and connective tissue
CPT/HCPCS: 59025; 80306; 85025; 85461; 86850; 86870; 86880; 86900; 86901; 88307; 99213